=== PATIENT | female | born 1960 | race Caucasian/White ===

== ENCOUNTER 2018-12-24 16:11 | Emergency (ER) | payer OTHER, MEDICAID ==
[~2018-12-24] VITALS: Ht 162.6 cm; Wt 83.9 kg
[2018-12-24 16:16] VITALS: Ht 162.6 cm; Wt 83.9 kg
[2018-12-24 19:52] VITALS: BP 135/87
== END 2018-12-24 19:52 | disposition home or self-care (01) ==
LOC: ED 16:11
DX: M54.9 Dorsalgia, unspecified (principal); G89.29 Other chronic pain; E11.65 Type 2 diabetes mellitus with hyperglycemia; I10 Essential (primary) hypertension; F32.9 Major depressive disorder, single episode, unspecified; F41.9 Anxiety disorder, unspecified; Z88.2 Allergy status to sulfonamides; Z88.6 Allergy status to analgesic agent; Z88.9 Allergy status to unspecified drugs, medicaments and biological substances
CPT/HCPCS: 82962; J3010